=== PATIENT | female | born 1985 | race Caucasian/White ===

== ENCOUNTER 2022-01-22 17:02 | Observation (INO) | payer BC ==
[~2022-01-22 17:02] MED LIST: CALCIUM; PRENATAL VITAMI1 TA5 PO
--- NOTE | 2022-01-22 18:22 | NUR ---
PT ARRIVES WITH EMS @ 1750. PT AMBULATES TO BED WITH EASE FROM EMS STRETCHER. PT STATES THAT SHE VOMITTED ON HER WAY INTO THE HOSPITAL ET BELIEVES SHE MAY HAVE DISLODGED THE FOOD THAT WAS STUCK. EMESIS BAG DOES HAVE SOME PIECES OF PINK FOOD IN IT. PT HAD BEEN EATING STEAK. PT HAS 18G INT IN PLACE TO RIGHT AC THAT WAS PLACED @ [facility], FLUSHES EASILY. DR. REZA ARRIVES TO ASSESS. PT TAKES A DRINK OF WATER ET BEGINS VOMITTING AGAIN. PT WILL GO TO SURGERY. PT HAS DRESSED SELF IN A GOWN. IS @ BEDSIDE.
[2022-01-22] MEDS ORDERED: PRILOTC (19:02)
[2022-01-22 19:08] VITALS: BP 116/54; PULSE 60; TEMP 98.2
[2022-01-22 19:23] VITALS: BP 98/53; PULSE 65
[2022-01-22 19:38] VITALS: BP 112/63; PULSE 52
[2022-01-22 19:53] VITALS: BP 107/59; PULSE 58
[2022-01-22 20:23] VITALS: BP 111/67; PULSE 62; TEMP 98.2
--- NOTE | 2022-01-22 21:03 | NUR ---
PATIENT UP TO FLOOR. ALERT AND ORIENTED. DENIES PAIN, DENIES NAUSEA. VSS. GAG REFLEX RETURNING SLOWLY. OFFERED SIPS OF WATER WHICH PATIENT TOLERATED. ALSO TOLERATED APPLESAUCE WITHOUT ISSUE. IV TO R AC DC'D, CATHETER INTACT, BANDAID APPLIED. DISCHARGE TEACHING AND PAPERWORK COMPLETED. AMBULATED TO BATHROOM AND VOIDED WITHOUT ISSUE. DISCHARGED VIA WHEELCHAIR WITH FAMILY TO HOME AT 205.
== END 2022-01-22 20:50 | disposition home or self-care (01) ==
LOC: SURG 17:02
PROVIDERS: ADMIT Internal Medicine Gastroenterology
DX: T18.128A Food in esophagus causing other injury, initial encounter (principal); K22.2 Esophageal obstruction; K21.00 Gastro-esophageal reflux disease with esophagitis, without bleeding
CPT/HCPCS: G0378; J0330; J2704